=== PATIENT | male | born 1950 | race Caucasian/White ===

== ENCOUNTER 2018-06-24 14:46 | Emergency (ER) | payer MEDICARE, OTHER ==
[2018-06-24] MEDS ORDERED: MORPHINE SULFATE 10 MG/ML IV ONE (15:08)
[2018-06-24] MEDS ORDERED: Heparin 5000 UNITS/0.5 ML (HIGH RISK MED) IV ONE (15:08)
[2018-06-24] MEDS ORDERED: MORPHINE SULFATE 10 MG/ML ONE (15:14)
[2018-06-24] MEDS ORDERED: Heparin 5000 UNITS/0.5 ML (HIGH RISK MED) ONE (15:14)
[2018-06-24] MEDS ORDERED: APRESOLINE 20 MG/ML INJ ONE (15:15)
[2018-06-24] MEDS ORDERED: Sodium Chloride 0.9% 1000 ML 1,000 ML IV SCH (15:15)
[2018-06-24] MEDS ORDERED: Zofran 4 MG/2 ML VIAL ONE (15:19)
[2018-06-24 15:23] LABS: BASOPHIL % 0.1 % (0.0-0.4); Basophil (Absolute #) 0.01 (0-0.4); Eosinophil % 2.8 % (0.00-5.0); Eosinophil (Absolute #) 0.19 (0-0.5); Granulocyte Absolute (ANC) 3.92 (1.4-6.9); Granulocytes % 56.9 % (36.0-66.0); Hemoglobin 13.5 gm/dl (12.5-18.0); Lymphocyte (Absolute #) 1.66 (1.0-4.6); Lymphocytes % 24.1 % (24.0-44.0); Mean Cell Volume 92.3 fl (78-100); Mean Corpuscular Hemoglobin 30.4 pg (26-32); Mean Corpuscular Hgb Concent. 32.9 g/dl (32-36); Mean Platelet Volume 10.6 fl (6-9.5); Monocyte (Absolute #) 1.11 (0.0-1.3); Monocytes % 16.1 % (0.0-12.0); Platelet Count 223 K/mm3 (150-450); Red Blood Count 4.44 M/mm3 (4.1-5.6); Red Cell Distribution Width 13.8 % (11.5-14.0); White Blood Count 6.9 K/mm3 (4.0-10.5)
[2018-06-24] MEDS ORDERED: Heparin 25,000 units/D5W 250ML PREMIX 25,000 UNITS/250 ML BAG IV SCH (15:30)
[2018-06-24] MEDS ORDERED: APRESOLINE 20 MG/ML INJ IV ONE (15:30)
[2018-06-24 15:34] LABS: ALBUMIN 4.3 g/dL (3.5-5.0); ALKALINE PHOSPHATASE 64 U/L (38-126); ANION GAP 13.6 MEQ/L (5-15); BLOOD UREA NITROGEN 9 mg/dL (9-20); CHLORIDE 98 mmol/L (98-107); Calcium 9.6 mg/dL (8.4-10.2); Carbon Dioxide 28 mmol/L (22-30); Glucose 86 mg/dL (74-106); SGOT/AST 31 U/L (17-59); SGPT/ALT 23 U/L (0-50); SODIUM 135 mmol/L (137-145); Total Protein 7.2 g/dL (6.3-8.2)
[2018-06-24 15:41] LABS: INR 1.05 (0.8-3.0)
[2018-06-24 15:43] LABS: PTT 32.2 SECONDS (24.1-36.1)
[2018-06-24] MEDS ORDERED: Zofran 4 MG/2 ML VIAL IV ONE (15:44)
--- NOTE | 2018-06-24 15:44 | ERPHSYRPT ---
- History of Present Illness Time Seen by Provider: 06/24/18 15:00 Source: patient Exam Limitations: clinical condition Patient Subjective Stated Complaint: right leg pain that started all the sudden today. has a previous fem pop in right leg. Triage Nursing Assessment: pt able to ambulate cannot walk on right leg pain in calf and ankle no pedal pulse able to be located with palpation or doppler for patient. right foot also feels cooler than left foot. femoral pulse present on right leg. pt alert [id number], skin aside from leg is warm dry and intact. Physician History: PATIENT WITH A HISTORY OF HYPERTENSION, AND PERIPHERAL VASCULAR OCCULSIVE DISEASE, PREVIOUS RIGHT FEMORAL POPLITEAL BYPASS 2013 AND INSERTION OF LEFT FEMORAL ARTERY STENTS 2014 COMPLAINS OF ACUTE ONSET OF RIGHT CALF PAIN WHILE AMBULATORY 30 MINUTES PRIOR TO EMERGENCY ARRIVAL. RATES PAIN SCALE 9/10. HAS CHRONIC NUMBNESS IN RIGHT FOOT. DENIES TRAUMA OR INJURY. Method of Injury: unknown Occurred: just prior to arrival Quality: constant, throbbing Severity of Pain-Max: severe Severity of Pain-Current: severe Lower Extremities Pain: leg: right Modifying Factors: Improves With: movement Associated Symptoms: other (WORSE WITH AMBULATION) Allergies/Adverse Reactions: No Known Drug Allergies Allergy (Verified 06/24/18 15:14) Hx Tetanus, Diphtheria Vaccination/Date Given: Yes Hx Influenza Vaccination/Date Given: No Hx Pneumococcal Vaccination/Date Given: No Immunizations Up to Date: Yes - Review of Systems Constitutional: No Fever, No Chills Eyes: No Symptoms Ears, Nose, & Throat: No Symptoms Respiratory: No Symptoms, No Cough, No Dyspnea Cardiac: No Symptoms, No Chest Pain, No Edema, No Syncope Abdominal/Gastrointestinal: No Abdominal Pain, No Nausea, No Vomiting, No Diarrhea Genitourinary Symptoms: No Symptoms, No Dysuria Musculoskeletal: Other (LEG PAIN), No Back Pain, No Neck Pain Skin: No Rash Neurological: No Dizziness, No Focal Weakness, No Sensory Changes Psychological: No Symptoms Endocrine: No Symptoms All Other Systems: Reviewed and Negative - Past Medical History Pertinent Past Medical History: Yes Cardiac History: Hypertension - Past Surgical History Past Surgical History: Yes Cardiac: Other - Social History Smoking Status: Never smoker Exposure to second hand smoke: Yes Drug Use: none - Nursing Vital Signs Nursing Vital Signs: Initial Vital Signs Temperature 97.9 F 06/24/18 14:47 Pulse Rate 75 06/24/18 14:47 Respiratory Rate 18 10/17/18 14:47 Blood Pressure 205/118 06/24/18 14:47 O2 Sat by Pulse Oximetry 98 06/24/18 14:47 Pain Scale Pain Intensity 4 - Physical Exam General Appearance: moderate distress Eyes, Ears, Nose, Throat Exam: moist mucous membranes Neck Exam: non-tender, supple Cardiovascular/Respiratory Exam: chest non-tender, normal breath sounds, regular rate/rhythm, no respiratory distress Gastrointestinal/Abdominal Exam: non-tender, guarding Legs Exam: right leg: soft tissue tenderness (RIGHT CALF TENDERNESS, LEFT STOVALL , FOOT COOL UPON PALPATION, BILATERAL FEMORAL PULSES 2+, RIGHT POPLITEAL DOPPLER SIGNAL 2/4, AND ABSENT DOPPLER SIGNALS RIGHT PEDIS AND POSTERIOR TIBIAL PULSES) Skin Exam: other (RIGHT LOWER EXTREMITY COOL TO TOUCH, NO CYANOSIS) SpO2 Interpretation: normal SpO2: 98 Oxygen Delivery: Room Air - Course EKG Interpreted by Me: RATE, Sinus Rhythm (RATE 71), NORMAL AXIS - Radiology Ultrasound Exam Arterial Lower Extremity Ultrasound: discussed w/radiologist (THERE IS COMPLETE OCCULSION OF FEMORAL POPLITEAL GRAFT.) Ordered Tests: Active Orders 24 hr Category Date Time Status EKG-ER Only STAT Care 06/24/18 15:08 Active IV Insertion STAT Care 06/24/18 15:08 Active ARTERIAL UNILAT/LTD LOWER EXT [US] Stat Exams 06/24/18 16:43 Completed VENOUS UNILAT/LIMITED EXTREMIT [US] Stat Exams 06/24/18 16:42 Completed CBC W DIFF Stat Lab 06/24/18 15:21 Completed CMP Stat Lab 06/24/18 15:21 Completed PROTIME WITH INR Stat Lab 06/24/18 15:21 Completed PTT Stat Lab 06/24/18 15:21 Completed Medication Summary Discontinued Medications Generic Name Dose Route Start Last Admin Trade Name Freq PRN Reason Stop Dose Admin Heparin Sodium (Beef Lung) 5,000 unit 06/24/18 15:08 06/24/18 15:21 Heparin 5000 Units/0.5 Ml (High Risk Med) IV 06/24/18 15:09 5,000 unit STAT ONE Administration Heparin Sodium (Beef Lung) Confirm 06/24/18 15:14 Heparin 5000 Units/0.5 Ml (High Risk Med) Administered 06/24/18 15:15 Dose 5,000 unit .ROUTE .STK-MED ONE Hydralazine HCl Confirm 06/24/18 15:15 Apresoline 20 Mg/Ml Inj Administered 06/24/18 15:16 Dose 20 mg .ROUTE .STK-MED ONE Hydralazine HCl 10 mg 06/24/18 15:30 06/24/18 15:46 Apresoline 20 Mg/Ml Inj IV 06/24/18 15:31 10 mg STAT ONE Administration Heparin Sodium/Dextrose 25,000 units in 250 mls @ 10 mls/hr 06/24/18 15:30 16:16 Heparin 25,000 Units/D5w 250ml Premix IV 07/24/18 15:29 10 mls/hr .Q24H HAIR 10 mls/hr Administration Sodium Chloride 1,000 mls @ 100 mls/hr 06/24/18 15:15 06/24/18 15:24 Sodium Chloride 0.9% 1000 Ml IV 07/24/18 15:14 100 mls/hr .Q10H HAIR Administration Heparin Sodium/Dextrose Confirm 06/24/18 16:01 Heparin 25,000 Units/D5w 250ml Premix Administered 06/24/18 16:02 Dose 25,000 units in 250 mls @ ud IV .STK-MED ONE Morphine Sulfate 6 mg 06/24/18 15:08 06/24/18 15:23 Morphine Sulfate 10 Mg/Ml IV 06/24/18 15:09 6 mg STAT ONE Administration Morphine Sulfate Confirm 06/24/18 15:14 Morphine Sulfate 10 Mg/Ml Administered 06/24/18 15:15 Dose 10 mg .ROUTE .STK-MED ONE Ondansetron HCl Confirm 06/24/18 15:19 Zofran 4 Mg/2 Ml Vial Administered 06/24/18 15:20 Dose 4 mg .ROUTE .STK-MED ONE Ondansetron HCl 4 mg 06/24/18 15:44 06/24/18 15:46 Zofran 4 Mg/2 Ml Vial IV 06/24/18 15:45 4 mg STAT ONE Administration Lab/Rad Data: Laboratory Result Diagrams 06/24/18 15:21 06/24/18 15:21 Laboratory Results 06/24/18 06/24/18 06/24/18 Range/Units 15:21 15:21 15:21 WBC 6.9 (4.0-10.5) K/mm3 RBC 4.44 (4.1-5.6) M/mm3 Hgb 13.5 (12.5-18.0) gm/dl Hct 41.0 L (42-50) % MCV 92.3 (78-100) fl MCH 30.4 (26-32) pg MCHC 32.9 (32-36) g/dl RDW 13.8 (11.5-14.0) % Plt Count 223 (150-450) K/mm3 MPV 10.6 H (6-9.5) fl Gran % 56.9 (36.0-66.0) % Eos # (Auto) 0.19 (0-0.5) Absolute Lymphs (auto) 1.66 (1.0-4.6) Absolute Monos (auto) 1.11 (0.0-1.3) Lymphocytes % 24.1 (24.0-44.0) % Monocytes % 16.1 H (0.0-12.0) % Eosinophils % 2.8 (0.00-5.0) % Basophils % 0.1 (0.0-0.4) % Absolute Granulocytes 3.92 (1.4-6.9) Basophils # 0.01 (0-0.4) PT 12.2 (8.83-12.87) SECONDS INR 1.05 (0.8-3.0) APTT 32.2 (24.1-36.1) SECONDS Sodium 135 L (137-145) mmol/L Potassium 4.0 (3.5-5.1) mmol/L Chloride 98 (98-107) mmol/L Carbon Dioxide 28 (22-30) mmol/L Anion Gap 13.6 (5-15) MEQ/L BUN 9 (9-20) mg/dL Creatinine 0.90 (0.66-1.25) mg/dL Estimated GFR > 60.0 ML/MIN Glucose 86 (74-106) mg/dL Calcium 9.6 (8.4-10.2) mg/dL Total Bilirubin 0.50 (0.2-1.3) mg/dL AST 31 (17-59) U/L ALT 23 (0-50) U/L Alkaline Phosphatase 64 (38-126) U/L Serum Total Protein 7.2 (6.3-8.2) g/dL Albumin 4.3 (3.5-5.0) g/dL - Progress Progress: improved Progress Note: 06/24/18 15:56 IV NORMAL SALINE 100ML/HR, HEPARIN BOLUS 5000UNIT BOLUS, FOLLOWED BY HEPARIN INFUSION 1000 UNITS/HR 06/24/18 15:59, ZOFRAN 4MG, MORPHINE 6MG, HYDRALAZINE 10MG IV, BLOOD PRESSURE IMPROVED TO BP 155/[address] Other (DISCUSSED WITH HOSPITALIST DR PANG AT 1550 ACCEPTS TRANSFER TO [facility]IA [facility]) - Departure Time of Disposition: 17:25 Departure Disposition: Transfer Clinical Impression: ACUTE ARTERIAL OCCULSION RIGHT LEG Condition: Stable Critical Care Time: No Referrals: THEO ARAIZA [Primary Care Provider] -
[2018-06-24] MEDS ORDERED: Heparin 25,000 units/D5W 250ML PREMIX 25,000 UNITS/250 ML BAG IV ONE (16:01)
[2018-06-24 16:26] VITALS: PULSE 75
[2018-06-24 16:46] VITALS: O2SAT 98
--- NOTE | 2018-06-24 16:58 | XRAY ---
Indication: Sudden onset leg pain. Two-dimensional sonogram and color Doppler imaging of the major venous vessels of the right leg was performed. Comparison: None There is smooth nonoccluding thrombus in the proximal femoral vein, chronic in appearance. No other thrombus in the remaining common femoral, deep femoral, mid to distal femoral, popliteal, tibioperoneal trunk, posterior tibial, peroneal, and greater saphenous veins. 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
--- NOTE | 2018-06-24 17:07 | XRAY ---
Indication: Sudden onset leg pain. History femoral popliteal bypass graft. Two-dimensional sonogram and color Doppler imaging of the major arteries of the right leg was performed. Comparison: None Common femoral and deep femoral arteries are patent with multiphasic arterial waveforms. The deering superficial femoral, femoral popliteal graft, popliteal, anterior tibial, and posterior tibial arteries are all occluded. Dorsal pedal artery demonstrates markedly attenuated flow with monophasic arterial waveforms. 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 Comment: Preliminary report was given.
[2018-06-24 17:26] VITALS: BP 132/84
== END 2018-06-24 17:40 | disposition short-term general hospital (02) ==
LOC: ED 14:46
DX: I77.1 Stricture of artery (principal); M79.604 Pain in right leg; I10 Essential (primary) hypertension; I77.9 Disorder of arteries and arterioles, unspecified; R20.0 Anesthesia of skin
CPT/HCPCS: 36000; 36415; 80053; 85025; 85610; 85730; 93005; 93926; 93971; 96360; 96365; 96374; 96375; 99285; J0360; J1644; J2270; J2405

== ENCOUNTER 2024-04-21 10:27 | Day surgery (SDC) | payer MEDICARE ==
[2024-04-21] MEDS ORDERED: Depo-Medrol 40 MG/ML IM ONE (10:28)
[2024-04-21] MEDS ORDERED: Xylocaine-Mpf 2% 5 Ml Vial IJ ONE (10:28)
[2024-04-21] MEDS ORDERED: DIPRIVAN 200 MG/20 ML IV ONE (12:22)
[2024-04-21] MEDS ORDERED: Lactated Ringers 1,000 ML IV ONE (12:51)
--- NOTE | 2024-04-21 14:45 | XRAY ---
Indication: Bilateral L3-L5 MBB. Intraoperative fluoroscopy was provided for 8 seconds. Single digital spot image submitted for interpretation demonstrates posterior needle tips projecting over the expected left and right L3-L5 nerve roots. Correlate with intraoperative findings/report.
--- NOTE | 2024-04-21 15:13 | XRAY ---
8 seconds of fluoroscopy was used in surgery or a bilateral L3-L5 MBB.
== END 2024-04-21 12:48 | disposition home or self-care (01) ==
LOC: SDC-PAIN 10:27
PROVIDERS: ATTEND Psychiatry & Neurology Pain Medicine
DX: M47.816 Spondylosis without myelopathy or radiculopathy, lumbar region (principal)
CPT/HCPCS: 64493; 64494; 72020; 77002; J2704

== ENCOUNTER 2024-05-26 10:50 | Day surgery (SDC) | payer MEDICARE ==
[2024-05-26] MEDS ORDERED: Depo-Medrol 40 MG/ML IM ONE (10:51)
[2024-05-26] MEDS ORDERED: Xylocaine-Mpf 2% 5 Ml Vial IJ ONE (10:51)
[2024-05-26] MEDS ORDERED: DIPRIVAN 200 MG/20 ML IV ONE (12:43)
[2024-05-26] MEDS ORDERED: Lactated Ringers 1,000 ML IV ONE (13:49)
--- NOTE | 2024-05-26 19:53 | XRAY ---
Indication: Bilateral L1-L3 MBB Intraoperative fluoroscopy provided for 18 seconds. Single digital spot image submitted for interpretation demonstrates posterior needle tips projecting over the expected left and right L1-L3 nerve roots. Correlate with intraoperative findings/report. Incidental T12 vertebroplasty.
--- NOTE | 2024-05-26 20:20 | XRAY ---
18 seconds of fluoroscopy was used in surgery for a bilateral L1-L3 MBB.
== END 2024-05-26 13:10 ==
LOC: SDC-PAIN 10:50
PROVIDERS: ATTEND Psychiatry & Neurology Pain Medicine
DX: M47.816 Spondylosis without myelopathy or radiculopathy, lumbar region (principal)
CPT/HCPCS: 64493; 64494; 72020; 77002; J2704

== ENCOUNTER 2024-06-23 14:32 | Day surgery (SDC) | payer MEDICARE ==
[2024-06-23] MEDS ORDERED: Depo-Medrol 40 MG/ML IM ONE (14:33)
[2024-06-23] MEDS ORDERED: BUPIVACAINE 0.5% VIAL IJ ONE (14:33)
[2024-06-23] MEDS ORDERED: DIPRIVAN 200 MG/20 ML IV ONE (16:32)
--- NOTE | 2024-06-23 18:20 | XRAY ---
Indication: Bilateral L1-L3 MBB. Intraoperative fluoroscopy provided for 12 seconds. Single digital spot image submitted for interpretation demonstrates posterior needle tips projecting over expected left and right L1-L3 nerve roots. Correlate with intraoperative findings/report. Incidental T12 vertebroplasty.
--- NOTE | 2024-06-24 08:37 | XRAY ---
12 seconds of fluoroscopy was used in surgery for a bilateral L1-L3 MBB.
== END 2024-06-23 17:15 | disposition home or self-care (01) ==
LOC: SDC-PAIN 14:32
PROVIDERS: ATTEND Psychiatry & Neurology Pain Medicine
DX: M47.816 Spondylosis without myelopathy or radiculopathy, lumbar region (principal)
CPT/HCPCS: 64493; 64494; 72020; 77002; J2704

== ENCOUNTER 2024-07-28 11:45 | Day surgery (SDC) | payer MEDICARE ==
[2024-07-28] MEDS ORDERED: LIDOCAINE HCL 1% AMPUL 5 ML IJ ONE (11:46)
[2024-07-28] MEDS ORDERED: BUPIVACAINE 0.5% VIAL IJ ONE (11:46)
[2024-07-28] MEDS ORDERED: Depo-Medrol 40 MG/ML IM ONE (11:46)
[2024-07-28] MEDS ORDERED: DIPRIVAN 200 MG/20 ML IV ONE (13:16)
--- NOTE | 2024-07-28 16:31 | XRAY ---
Indication: Right L1-L3 RFA. Intraoperative fluoroscopy provided for 25 seconds. 5 digital spot image submitted for interpretation demonstrates posterior needle tips projecting over the expected right L1-L3 nerve roots. Correlate with intraoperative findings/report. Incidental L1 kyphoplasty.
--- NOTE | 2024-07-28 17:10 | XRAY ---
25 seconds of fluoroscopy was used in surgery for a right L1-L3 RFA.
== END 2024-07-28 13:46 | disposition home or self-care (01) ==
LOC: SDC-PAIN 11:45
PROVIDERS: ATTEND Psychiatry & Neurology Pain Medicine
DX: M47.816 Spondylosis without myelopathy or radiculopathy, lumbar region (principal)
CPT/HCPCS: 64635; 64636; 72100; 77002; J2704

== ENCOUNTER 2024-08-11 11:52 | Day surgery (SDC) | payer MEDICARE ==
[2024-08-11] MEDS ORDERED: BUPIVACAINE 0.5% VIAL IJ ONE (11:53)
[2024-08-11] MEDS ORDERED: Depo-Medrol 40 MG/ML IM ONE (11:53)
[2024-08-11] MEDS ORDERED: LIDOCAINE HCL 1% AMPUL 5 ML IJ ONE (11:53)
[2024-08-11] MEDS ORDERED: DIPRIVAN 200 MG/20 ML IV ONE (13:32)
--- NOTE | 2024-08-11 18:54 | XRAY ---
Indication: Left L1-L3 RFA. Intraoperative fluoroscopy provided for 30 seconds. 4 digital spot image submitted for interpretation demonstrates posterior needle tips projecting over the expected left L1-L3 nerve roots. Correlate with intraoperative findings/report. Incidental L1 kyphoplasty.
--- NOTE | 2024-08-11 19:25 | XRAY ---
30 seconds of fluoroscopy was used in surgery for a left L1-L3 RFA.
== END 2024-08-11 13:56 | disposition home or self-care (01) ==
LOC: SDC-PAIN 11:52
PROVIDERS: ATTEND Psychiatry & Neurology Pain Medicine
DX: M47.816 Spondylosis without myelopathy or radiculopathy, lumbar region (principal)
CPT/HCPCS: 64635; 64636; 72100; 77002; J2704